=== PATIENT | male | born 1995 | race Caucasian/White ===

== ENCOUNTER 2022-02-23 06:11 | Emergency (ER) | payer BC ==
[2022-02-23 06:30] VITALS: BMI 21.4
[2022-02-23] MEDS ORDERED: METOCLOPRAMIDE HCL INJECTION 10 MG/2 ML VIAL IVPUSH ONE (07:35)
[2022-02-23] MEDS ORDERED: ACETAMINOPHEN 1000 MG/100 ML BAG IVPB ONE (07:37)
[2022-02-23] MEDS ORDERED: METOCLOPRAMIDE HCL INJECTION 10 MG/2 ML VIAL ONE (07:54)
[2022-02-23] MEDS ORDERED: ACETAMINOPHEN INJECTION 100 ML IVPB ONE (07:55)
[2022-02-23 08:12] VITALS: BP 112/80; PULSE 80; RESP 16; TEMP 98.4
== END 2022-02-23 09:34 | disposition home or self-care (01) ==
LOC: JER 06:11
PROC: 3E033GC Introduction of Other Therapeutic Substance into Peripheral Vein, Percutaneous Approach (ICD-10-PCS; principal; 2022-02-23)
PROC: 3E033GC Introduction of Other Therapeutic Substance into Peripheral Vein, Percutaneous Approach (ICD-10-PCS; 2022-02-23)
DX: R51.9 Headache, unspecified (principal)
CPT/HCPCS: 70450-TC; 99284-25